=== PATIENT | female | born 1985 | race Hispanic/Latino ===

== ENCOUNTER 2016-12-11 22:31 | Inpatient (IN) | payer OTHER ==
[~2016-12-11] VITALS: Ht 162.6 cm; Wt 79.3 kg
[~2016-12-11 22:31] MED LIST: ADVAIR 250/501 DISK IH; BUTALB-APAP-CA1 EACH PO; ENDOCET 5-3251 EACH PO; FLEXERIL10 MG PO; K-DUR20 MEQ PO; MONTELUKAST SOD10 MG PO; MOTRIN800 MG PO; NAPROXEN500 MG PO; NOHOMEMEDS; PERCOCET 5/31 TABLET PO; PREDNISONE20 MG PO; PROMETHAZINE HC25 M1; PULMICORT180 MICROG IH; Phenergan PO; Reglan PO; SINGULAIR10 MG PO; SUDAFED 12-HOU120 MG PO; SUMATRIPTAN SUC50 MG PO; TOPIRAMATE25 MG PO; TROKENDI XR200 MG PO; ULTRAM50 MG PO; VENTOLIN HFA18 GM IH; ZITHROMAX Z-PA250 MG PO; ZYRTEC10 M3 PO
[2016-12-11 23:03] LABS: CREATININE 0.8 mg/dL (0.6-1.3); POTASSIUM 3.7 mEq/L (3.7-5.4)
[2016-12-11 23:16] LABS: EOSINOPHIL (%) 0.7 % (0-5); EOSINOPHIL COUNT 0.1 K/uL (0-0.3); HEMATOCRIT 42.3 % (36.0-46.0); IMMATURE GRANULOCYTE (%) 0.1 % (0.0-0.7); INSTRUMENT ABS NEUTROPHIL CT 2.6 K/uL; LYMPHOCYTE COUNT 4.9 K/uL (1.0-2.8); MCH 31.4 PG (29.0-34.0); MCHC 32.2 G/DL (30.0-36.0); MCV 97.7 FL (83-99); MEAN PLAT.VOLUME 10.8 uM^3 (9.5-12.4); MONOCYTE (%) 6.5 % (3-12); MONOCYTE COUNT 0.5 K/uL (0-0.8); NEUTROPHIL (%) 31.8 % (45-76); NEUTROPHIL COUNT 2.6 K/uL (1.8-6.4); PLATELET COUNT 201 K/uL (156-360); RBC DIS.WIDTH-CV 11.9 % (11.8-14.6); RBC DIS.WIDTH-SD 43.5 % (39-53); RED BLOOD COUNT 4.33 M/uL (3.80-5.20); WHITE BLOOD COUNT 8.1 K/uL (4.1-10.2)
[2016-12-11 23:26] LABS: PROTHROMBIN TIME 10.4 (9.2-11.2); PTT 27.1 (25-32)
[2016-12-11 23:29] LABS: AMYLASE 110 IU/L (1-118); CHLORIDE 109 mEq/L (99-109); POTASSIUM 3.8 mEq/L (3.7-5.4)
[2016-12-11 23:30] LABS: SODIUM 141 mEq/L (136-147)
[2016-12-11 23:31] LABS: GLUCOSE 111 mg/dL (70-99)
[2016-12-11 23:33] LABS: ANION GAP 12 MEQ/L (2-14)
[2016-12-11 23:34] LABS: SERUM ETHYL ALCOHOL < 10 mg/dL
[2016-12-11 23:35] LABS: GFR ESTIMATE (CALCULATED) > 59 mL/min/
[2016-12-11 23:36] LABS: UREA NITROGEN (BUN) 10 mg/dL (9-23)
[2016-12-11 23:38] LABS: LIPASE 41 U/L (1.0-51.0)
[2016-12-11 23:39] LABS: TROP-I INTERPRETATION NEGATIVE; TROPONIN-I < 0.01 ng/mL (0.0-0.30)
[2016-12-11 23:44] LABS: QUANTITATIVE HCG < 4.0 MIU/ML
[2016-12-12 00:36] LABS: ADD MIUA? YES; BILIRUBIN NEGATIVE; BLOOD NEGATIVE; COLOR YELLOW ((YELLOW)); GLUCOSE (STRIP) NEGATIVE; KETONES NEGATIVE; LEUKOCYTES TRACE; NITRITE NEGATIVE; PROTEIN (STRIP) NEGATIVE; SPECIFIC GRAVITY 1.026 (1.000-1.030); UROBILINOGEN 0.2 MG/DL (0.2-1.0)
[2016-12-12 00:44] LABS: BACTERIA NONE SEEN /HPF; EPITHELIAL CELLS RARE /HPF; MUCUS TRACE /LPF; RED BLOOD CELLS 0-5 /HPF (0-5); UCUL ADDED? NO; WHITE BLOOD CELLS 0-5 /HPF (0-5)
[2016-12-12 00:48] LABS: AMPHETAMINE NEGATIVE (500 ng/mL); BARBITURATES NEGATIVE (200 ng/mL); BENZODIAZEPINES NEGATIVE (150 ng/mL); COCAINE NEGATIVE (150 ng/mL); INTERNAL CONTROLS VALID? YES; METHADONE NEGATIVE (200 ng/mL); METHAMPHETAMINE NEGATIVE (500 ng/mL); OPIATES (MORPHINE) NEGATIVE (100 ng/mL); OXYCODONE NEGATIVE (100 ng/mL); PHENCYCLIDINE NEGATIVE (25 ng/mL); PROPOXYPHENE NEGATIVE (300 ng/mL); THC CANNABINOIDS NEGATIVE (50 ng/mL); TRICYCLIC ANTIDEPRESSANTS NEGATIVE (300 ng/mL)
[2016-12-12] MEDS ORDERED: TOPAMAX100 MG PO (01:12)
[2016-12-12] MEDS ORDERED: NEURONTIN300 MG PO (01:13)
[2016-12-12] MEDS ORDERED: IBUPROFEN800 MG PO (01:13)
[2016-12-12] MEDS ORDERED: ENDOCET 5-3251 EACH PO (01:14)
[2016-12-12 06:14] VITALS: BP 127/80
[2016-12-12 07:16] LABS: Estimated Average Glucose 100 mg/dL (70-123); HEMOGLOBIN A1c (GLYCOHEMOGLOB) 5.1 % HGB (Below 5.7)
[2016-12-12 07:24] LABS: HDL CHOLESTEROL 67 MG/DL (Desirable>=50); LDL CHOLESTEROL 135 mg/dL (Desirable<100); NON-HDL CHOLESTEROL 143 mg/dL (Desirable<160); TOTAL CHOLESTEROL 210 mg/dL (Desirable<200); TRIGLYCERIDES 42 MG/DL (Normal: <150)
[2016-12-12 07:48] VITALS: BP 127/73
[2016-12-12 11:36] VITALS: BP 131/74
[2016-12-12 16:37] VITALS: BP 134/76
[2016-12-12 19:30] VITALS: BP 135/81
[2016-12-12 20:04] LABS: ANION GAP 9 MEQ/L (2-14); CHLORIDE 113 MEQ/L (99-109); POTASSIUM 3.8 MEQ/L (3.7-5.4); SAMPLE HEMOLYSIS CHECK 0; SAMPLE ICTERIC CHECK 0; SAMPLE LIPEMIA CHECK 0; SODIUM 139 MEQ/L (136-147); TOTAL BILIRUBIN 0.3 MG/DL (0.0-1.0)
[2016-12-12 20:09] LABS: ALKALINE PHOSPHATASE 45 IU/L (3-129); GFR ESTIMATE (CALCULATED) > 59 mL/min/; GLUCOSE 119 mg/dL (70-99); UREA NITROGEN (BUN) 10 mg/dL (9-23)
[2016-12-12 20:10] LABS: POINT-OF-CARE METER ID UU14188625
[2016-12-13 01:11] VITALS: BP 103/60
[2016-12-13 04:21] VITALS: BP 107/61
[2016-12-13 05:39] LABS: HEMATOCRIT 38.6 % (36.0-46.0); MCH 32.1 PG (29.0-34.0); MCHC 32.4 G/DL (30.0-36.0); MEAN PLAT.VOLUME 10.7 uM^3 (9.5-12.4); PLATELET COUNT 196 K/uL (156-360); RBC DIS.WIDTH-CV 12.4 % (11.8-14.6); RBC DIS.WIDTH-SD 44.7 % (39-53); WHITE BLOOD COUNT 8.6 K/uL (4.1-10.2)
[2016-12-13 08:11] VITALS: BP 115/75
[2016-12-13 11:54] VITALS: BP 105/67
[2016-12-13] MEDS ORDERED: XANAX0.25 MG PO (13:30)
== END 2016-12-13 14:05 | disposition home or self-care (01) | DRG 880 ==
LOC: EME → EDBD 22:31 → EDOF 12-12 04:32 → 5SOUTH 12-12 06:01
PROVIDERS: Emergency Medicine; Hospitalist; Internal Medicine; Physician Assistant Medical
DX: F44.9 Dissociative and conversion disorder, unspecified (principal); G43.001 Migraine without aura, not intractable, with status migrainosus; F41.9 Anxiety disorder, unspecified; G89.29 Other chronic pain; M54.9 Dorsalgia, unspecified; J45.909 Unspecified asthma, uncomplicated
CPT/HCPCS: 70450; 70496; 70498; 70551; 80047; 80048; 80048 91; 80053; 80061; 81003; 82150; 82948; 83036; 83690; 83735; 84484; 84702; 85025; 85027; 85610; 85730; 86900; 86901; 93005; 94640; 94640 76; 99202; 99281; 99284; G0480; J1100; J1650; J2060; J7030; J7644

== ENCOUNTER 2017-07-29 08:18 | Emergency (ER) | payer OTHER ==
[~2017-07-29] VITALS: Ht 162.6 cm; Wt 85.0 kg
[~2017-07-29 08:18] MED LIST changes: +IBUPROFEN800 MG PO; +NEURONTIN300 MG PO; +TOPAMAX100 MG PO; +XANAX0.25 MG PO
[2017-07-29] MEDS ORDERED: ALBUTEROL2.5 MG/3 M IH (10:15)
[2017-07-29] MEDS ORDERED: PREDNISONE50 MG PO (10:15)
[2017-07-29] MEDS ORDERED: ZITHROMAX Z-PA250 MG PO (10:15)
[2017-07-29 10:29] VITALS: BP 113/66
== END 2017-07-29 10:30 | disposition home or self-care (01) ==
LOC: EME 08:18
DX: J20.9 Acute bronchitis, unspecified (principal); J45.901 Unspecified asthma with (acute) exacerbation; Z88.8 Allergy status to other drugs, medicaments and biological substances; Z86.73 Personal history of transient ischemic attack (TIA), and cerebral infarction without residual deficits
CPT/HCPCS: 71010; 93005; 94640; J7512

== ENCOUNTER 2017-12-24 15:55 | Observation (INO) | payer BC ==
[~2017-12-24] VITALS: Ht 162.6 cm; Wt 91.9 kg
[~2017-12-24 15:55] MED LIST changes: +ALBUTEROL2.5 MG/3 M IH; +PREDNISONE50 MG PO
[2017-12-24 17:02] LABS: BASOPHIL (%) 0.5 % (0-1); EOSINOPHIL (%) 1.2 % (0-5); EOSINOPHIL COUNT 0.1 K/uL (0-0.3); HEMATOCRIT 43.7 % (36.0-46.0); HEMOGLOBIN 14.5 G/DL (11.9-15.5); IMMATURE GRANULOCYTE (%) 0.2 % (0.0-0.7); LYMPHOCYTE (%) 41.7 % (15-42); LYMPHOCYTE COUNT 3.4 K/uL (1.0-2.8); MCH 32.6 PG (29.0-34.0); MCHC 33.2 G/DL (30.0-36.0); MCV 98.2 FL (83-99); MONOCYTE (%) 6.4 % (3-12); MONOCYTE COUNT 0.5 K/uL (0-0.8); NEUTROPHIL COUNT 4.1 K/uL (1.8-6.4); PLATELET COUNT 229 K/uL (156-360); RBC DIS.WIDTH-CV 11.9 % (11.8-14.6); RBC DIS.WIDTH-SD 42.8 % (39-53); RED BLOOD COUNT 4.45 M/uL (3.80-5.20); WHITE BLOOD COUNT 8.3 K/uL (4.1-10.2)
[2017-12-24 17:11] LABS: CHLORIDE 108 mEq/L (99-109); SODIUM 141 mEq/L (136-147)
[2017-12-24 17:13] LABS: GLUCOSE 81 mg/dL (70-99)
[2017-12-24 17:17] LABS: CREATININE 0.8 mg/dL (0.6-1.3); GFR ESTIMATE (CALCULATED) > 59 mL/min/
[2017-12-24 17:18] LABS: UREA NITROGEN (BUN) 9 mg/dL (9-23)
[2017-12-24 17:27] LABS: QUANTITATIVE HCG < 4.0 MIU/ML
[2017-12-24 17:37] LABS: APPEARANCE TURBID ((CLEAR)); BILIRUBIN NEGATIVE; BLOOD NEGATIVE; COLOR YELLOW ((YELLOW)); GLUCOSE (STRIP) NEGATIVE; KETONES NEGATIVE; LEUKOCYTES LARGE; NITRITE NEGATIVE; PROTEIN (STRIP) 30; SPECIFIC GRAVITY 1.014 (1.000-1.030); UROBILINOGEN 0.2 MG/DL (0.2-1.0)
[2017-12-24 17:50] LABS: AMORPHOUS PHOSPHATE CRYSTALS 4+; BACTERIA 1+ /HPF; EPITHELIAL CELLS 1+ /HPF; MUCUS NONE SEEN /LPF; RED BLOOD CELLS 0-5 /HPF (0-5); UCUL ADDED? NO; WHITE BLOOD CELLS 0-5 /HPF (0-5)
[2017-12-24] MEDS ORDERED: PERCOCET 7.51 TABLET PO (20:15)
[2017-12-24] MEDS ORDERED: SYMBICORT60 INHALAT IH (20:15)
[2017-12-24] MEDS ORDERED: ADULT ASPIRIN R81 MG PO (20:15)
[2017-12-24] MEDS ORDERED: ROBAXIN500 MG PO (20:16)
[2017-12-24] MEDS ORDERED: IBUPROFEN800 MG PO (20:16)
[2017-12-24] MEDS ORDERED: BIOTIN1000 MICRO PO (20:16)
[2017-12-24 22:34] LABS: D-DIMER ELISA < 150.00 ng/mLDDU (<230)
[2017-12-24 22:39] LABS: MAGNESIUM 2.2 mg/dL (1.3-2.7)
[2017-12-24 22:43] LABS: PHOSPHORUS 3.1 mg/dL (2.5-4.9)
[2017-12-24 22:50] VITALS: BP 108/68
[2017-12-24 22:52] LABS: QUANTITATIVE HCG < 4.0 MIU/ML
[2017-12-25 02:51] VITALS: BP 94/59
[2017-12-25 08:11] VITALS: BP 109/66
[2017-12-25 11:48] VITALS: BP 117/73
[2017-12-25 11:48] LABS: HDL CHOLESTEROL 50 MG/DL (Desirable>=50); LDL CHOLESTEROL 102 mg/dL (Desirable<100); NON-HDL CHOLESTEROL 123 mg/dL (Desirable<160); TOTAL CHOLESTEROL 173 mg/dL (Desirable<200); TRIGLYCERIDES 105 MG/DL (Normal: <150)
[2017-12-25 15:40] VITALS: BP 117/61
[2017-12-25 20:31] VITALS: BP 117/67
[2017-12-25 23:30] VITALS: BP 124/71
[2017-12-26 01:19] LABS: TROP-I INTERPRETATION NEGATIVE; TROPONIN-I < 0.01 ng/mL (0.0-0.30)
[2017-12-26 03:46] VITALS: BP 109/64
[2017-12-26 06:15] LABS: TROP-I INTERPRETATION NEGATIVE; TROPONIN-I < 0.01 ng/mL (0.0-0.30)
[2017-12-26 09:21] VITALS: BP 113/67
[2017-12-26 11:56] VITALS: BP 130/58
[2017-12-26 12:10] LABS: TROP-I INTERPRETATION NEGATIVE; TROPONIN-I < 0.01 ng/mL (0.0-0.30)
== END 2017-12-26 16:10 | disposition home or self-care (01) ==
LOC: EME 15:55 → EXP 15:55 → 4SOUTH 21:08 → EDOF 21:08 → 4SOUTH 21:08 → ENRESERV 21:14 → 4SOUTH 22:38
PROVIDERS: Hospitalist; Internal Medicine; Physician Assistant
DX: R55 Syncope and collapse (principal); R20.0 Anesthesia of skin; G43.109 Migraine with aura, not intractable, without status migrainosus; J45.909 Unspecified asthma, uncomplicated; Z90.49 Acquired absence of other specified parts of digestive tract; Z82.3 Family history of stroke; Z82.49 Family history of ischemic heart disease and other diseases of the circulatory system; N39.0 Urinary tract infection, site not specified
CPT/HCPCS: 70496; 70498; 70551; 80048; 80061; 81003; 83605; 83735; 84100; 84484; 84702; 85025; 85379; 93005; 94640; 94640 76; 99202; 99281; 99285; G0378; G8987 GO CI; G8988 CI; J0696; J1200; J1885; J2405; J2765; J2930; J7030

== ENCOUNTER 2018-04-02 04:59 | Emergency (ER) | payer BC ==
[~2018-04-02] VITALS: Ht 162.6 cm; Wt 95.3 kg
[~2018-04-02 04:59] MED LIST changes: +ADULT ASPIRIN R81 MG PO; +BIOTIN1000 MICRO PO; +PERCOCET 7.51 TABLET PO; +ROBAXIN500 MG PO; +SYMBICORT60 INHALAT IH
[2018-04-02 05:25] LABS: HEMATOCRIT 39.7 % (36.0-46.0); HEMOGLOBIN 13.3 G/DL (11.9-15.5); MCH 32.5 PG (29.0-34.0); MCHC 33.5 G/DL (30.0-36.0); MCV 97.1 FL (83-99); PLATELET COUNT 243 K/uL (156-360); RBC DIS.WIDTH-CV 12.2 % (11.8-14.6); RBC DIS.WIDTH-SD 43.8 % (39-53); RED BLOOD COUNT 4.09 M/uL (3.80-5.20); WHITE BLOOD COUNT 6.4 K/uL (4.1-10.2)
[2018-04-02 05:35] LABS: CHLORIDE 116 mEq/L (99-109); SODIUM 142 mEq/L (136-147)
[2018-04-02 05:36] LABS: GLUCOSE 108 mg/dL (70-99)
[2018-04-02 05:40] LABS: CREATININE 0.8 mg/dL (0.6-1.3); D-DIMER ELISA < 150.00 ng/mLDDU (<230); GFR ESTIMATE (CALCULATED) > 59 mL/min/
[2018-04-02 05:41] LABS: UREA NITROGEN (BUN) 12 mg/dL (9-23)
[2018-04-02 05:48] LABS: TROP-I INTERPRETATION NEGATIVE; TROPONIN-I < 0.01 ng/mL (0.0-0.30)
[2018-04-02 05:49] LABS: QUANTITATIVE HCG < 4.0 MIU/ML
[2018-04-02] MEDS ORDERED: PEPCID20 MG PO (05:56)
[2018-04-02] MEDS ORDERED: TORADOL10 MG PO (05:56)
[2018-04-02 06:19] VITALS: BP 103/69
== END 2018-04-02 06:21 | disposition home or self-care (01) ==
LOC: EME 04:59
PROVIDERS: Emergency Medicine
DX: R07.9 Chest pain, unspecified (principal); R20.8 Other disturbances of skin sensation; J45.909 Unspecified asthma, uncomplicated; G89.29 Other chronic pain; M54.9 Dorsalgia, unspecified; G43.909 Migraine, unspecified, not intractable, without status migrainosus; F41.9 Anxiety disorder, unspecified; Z90.49 Acquired absence of other specified parts of digestive tract; Z98.51 Tubal ligation status; Z82.49 Family history of ischemic heart disease and other diseases of the circulatory system; Z79.82 Long term (current) use of aspirin; Z88.5 Allergy status to narcotic agent; Z88.8 Allergy status to other drugs, medicaments and biological substances; Z91.018 Allergy to other foods
CPT/HCPCS: 71046; 80048; 84484; 84702; 85027; 85379; 93005; 99281; 99284